=== PATIENT | male | born 1975 | race Caucasian/White ===

== ENCOUNTER 2020-12-19 12:15 | Emergency (ER) | payer OTHER ==
[2020-12-19 13:58] LABS: Absolute Lymphocytes (CBC) 2.3 K/uL (0.7-4.9); Basophils % 0.8 % (0-1.3); Hematocrit 43.9 % (39.6-49.0); Lymphocytes % 26.6 % (15.3-44.8); MPV 7.9 fL (7.6-11.3); RBC Red Blood Cell Count 4.77 M/uL (4.33-5.43)
[2020-12-19 14:06] LABS: Protime INR 1.01
[2020-12-19] MEDS ORDERED: DIAZEPAM 10 MG/2 ML INJ SYRINGE ONE (14:11)
[2020-12-19] MEDS ORDERED: KETOROLAC 30 MG/ML INJ ONE (14:11)
[2020-12-19 14:16] LABS: ALT/SGPT 71 U/L (12-78); AST/SGOT 52 U/L (15-37); Albumin 3.8 g/dL (3.4-5.0); Alkaline Phosphatase 62 U/L (45-117); BUN Blood Urea Nitrogen 19 mg/dL (7-18); Bicarbonate 28 mmol/L (21-32); Bilirubin Direct < 0.1 mg/dL (0-0.2); Bilirubin Total 0.3 mg/dL (0.2-1.0); Glucose Level 97 mg/dL (74-106); Magnesium 1.6 mg/dL (1.8-2.4); NT PRO-BNP 13 pg/mL (<125); Potassium 4.3 mmol/L (3.5-5.1); Protein, Total 7.6 g/dL (6.4-8.2); Sodium Level 141 mmol/L (136-145); Troponin (Emerg Dept Use Only) < 0.02 ng/mL (0.0-0.045)
--- NOTE | 2020-12-19 14:45 | RAD REPORT ---
EXAM DESCRIPTION: RAD - Chest Single View - 12/19/2020 1:56 pm CLINICAL HISTORY: PAIN, lifting injury COMPARISON: None TECHNIQUE: AP portable chest image was obtained 12/19/2020 1:56 pm . FINDINGS: Lung volumes are low. No acute lung parenchymal process. Heart and vasculature are normal. No measurable pleural effusion and no pneumothorax. No acute bony abnormality seen. No acute aortic findings suspected. IMPRESSION: No acute cardiopulmonary process.
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
[2020-12-19 15:27] VITALS: TEMP 98.3
[2020-12-19 15:31] VITALS: BP 128/91; O2SAT 96
--- NOTE | 2020-12-20 12:01 | EKG ---
Test Date: 2020-12-19 Test Time: 13:58:20 Acid Conditioning Worker: MAREN MEASUREMENT RESULTS: Intervals: Rate: 66 [place]: 158 QRSD: 90 QT: 390 QTc: 408 [place]: P: 18 [place]: 158 QRS: 10 T: 32 INTERPRETIVE STATEMENTS: Normal sinus rhythm Normal ECG No previous ECG available for comparison Electronically Signed On 12-20-20 11:57:13 CDT by Sabino Villarreal
--- NOTE | 2020-12-20 12:01 | EKG ---
Test Date: 2020-12-19 Test Time: 13:59:02 Wafer Cutter: MAREN MEASUREMENT RESULTS: Intervals: Rate: 75 OR: 158 QRSD: 92 QT: 386 QTc: 431 [place]: P: 9 OR: 158 QRS: 9 T: 22 INTERPRETIVE STATEMENTS: Normal sinus rhythm Normal ECG Compared to ECG 12/19/2020 13:58:20 No significant changes Electronically Signed On 12-20-20 11:57:12 CDT by Sabino Villarreal
== END 2020-12-19 15:19 | disposition home or self-care (01) ==
LOC: ER 12:15
DX: M62.830 Muscle spasm of back (principal); M10.9 Gout, unspecified
CPT/HCPCS: 93005 ×2; 85025; 80048; 36415; 83735; 85610; 80076; 84484; 83880; 71045; 96375; 96374; 99284; J3360